=== PATIENT | female | born 1975 | race Caucasian/White ===

== ENCOUNTER 2020-10-26 14:43 | Observation (INO) ==
[2020-10-26] MEDS ORDERED: SODIUM CHLORIDE 0.9% 1,000 ML IV STA (15:04)
[2020-10-26 15:12] LABS: Basophils # 0.1 10*3/uL (0.0-0.2); Basophils % 1.1 % (0.0-0.8); Eosinophils # 0.1 10*3/uL (0.0-0.87); Eosinophils % 2.1 % (0.00-10.9); Hematocrit 33.1 VOL% (35.7-47.0); Hemoglobin 11.1 GM/DL (12.0-16.0); Immature Granulocytes % 0.2 %; Immature Granulocytes Absolute 0.01 #; Lymphocytes # 1.5 10*3/uL (1.4-4.0); Lymphocytes % 27.7 % (21.3-54.2); Mean Corpuscular HGB Conc 33.5 GM/DL (32-36); Mean Corpuscular Volume 89.7 FL (87-102); Mean Platelet Volume 8.9 FL (9.6-12.0); Monocytes % 10.7 % (1.7-12.7); Neutrophils % 58.2 % (38.7-73.9); Platelet Count 270 T/CUMM (130-400); Red Blood Count 3.69 MC/CUMM (3.8-5.5); Red Cell Distribution Width 12.6 % (9.3-17.3); White Blood Count 5.3 T/CUMM (4-12)
[2020-10-26 15:47] LABS: Alanine Aminotransferase 21 U/L (13-56); Albumin 3.6 G/DL (3.4-5.0); Alkaline Phosphatase 80 U/L (45-117); Aspartate Amino Transferase 24 U/L (0-37); Blood Urea Nitrogen 15 MG/DL (7-18); Calcium 8.5 MG/DL (8.5-10.1); Carbon Dioxide 25 MMOL/L (21-32); Estimated Glom Filtration Rate 127 ML/MIN; Glucose 103 MG/DL (74-106); Potassium 2.6 MMOL/L (3.5-5.1); Sodium 136 MMOL/L (136-145); Total Protein 6.1 G/DL (6.4-8.2)
[2020-10-26] MEDS ORDERED: LORazepam 2 MG/1 ML VIAL ONE (15:59)
[2020-10-26] MEDS ORDERED: LORazepam 2 MG/1 ML VIAL IM STA (16:22)
[2020-10-26] MEDS ORDERED: LORazepam 2 MG/1 ML VIAL IV STA (16:24)
[2020-10-26 16:31] LABS: Barbiturates Screen,Urine Negative (Negative); Benzodiazepines Screen,Urine Negative (Negative); Cannabinoid Screen,Urine Negative (Negative); Opiate Screen,Urine Negative (Negative); Phencyclidine Screen,Urine Negative (Negative)
[2020-10-26] MEDS ORDERED: POTASSIUM CHLORIDE RIDER 20 MEQ in PREMIX 1 EACH IV STA (18:33)
[2020-10-26] MEDS ORDERED: POTASSIUM CHLORIDE RIDER 100 ML IV ONE ×2 (19:02→19:03)
[2020-10-26] MEDS ORDERED: DEXTROSE 50% 25 GM/50 ML VIAL IV PRN (21:48)
[2020-10-26] MEDS ORDERED: GLUCAGON 1 MG VIAL IM PRN (21:48)
[2020-10-26] MEDS ORDERED: ONDANSETRON 4 MG/2 ML VIAL IV PRN (21:54)
[2020-10-26] MEDS ORDERED: NICOTINE 21 MG/24 HR PATCH TRANSDERM PRN (21:54)
[2020-10-26] MEDS: SODIUM CHLORIDE 0.9% 1,000 ML IV SCH (23:48)
[2020-10-27] MEDS: LORazepam 2 MG/1 ML VIAL IV PRN ×3 (01:24→20:18)
[2020-10-27 04:51] LABS: Osmolality,Calculated 278.3 MOS/KG (273-304)
[2020-10-27] MEDS ORDERED: POTASSIUM CHLORIDE 20 MEQ TABLET PO ONE (04:59)
[2020-10-27] MEDS: SODIUM CHLORIDE 0.9% 1,000 ML IV SCH ×4 (06:00→22:00)
[2020-10-27] MEDS: POTASSIUM CHLORIDE 20 MEQ TABLET PO PRN ×3 (09:27→13:47)
[2020-10-27] MEDS ORDERED: ALUMINUM/MAGNES/SIMETH MAX STR 30 ML UDCUP PO PRN (22:27)
[2020-10-28] MEDS: SODIUM CHLORIDE 0.9% 1,000 ML IV SCH ×2 (04:33→06:00)
[2020-10-28 05:07] LABS: Basophils # 0.1 10*3/uL (0.0-0.2); Basophils % 1.8 % (0.0-0.8); Eosinophils # 0.1 10*3/uL (0.0-0.87); Eosinophils % 3.6 % (0.00-10.9); Hematocrit 33.9 VOL% (35.7-47.0); Hemoglobin 11.1 GM/DL (12.0-16.0); Immature Granulocytes % 0.3 %; Immature Granulocytes Absolute 0.01 #; Lymphocytes % 50.9 % (21.3-54.2); Mean Corpuscular HGB Conc 32.7 GM/DL (32-36); Mean Corpuscular Volume 92.1 FL (87-102); Mean Platelet Volume 9.6 FL (9.6-12.0); Monocytes % 5.9 % (1.7-12.7); Neutrophils % 37.5 % (38.7-73.9); Platelet Count 260 T/CUMM (130-400); Red Blood Count 3.68 MC/CUMM (3.8-5.5); Red Cell Distribution Width 12.8 % (9.3-17.3); White Blood Count 3.9 T/CUMM (4-12)
[2020-10-28 05:39] LABS: Osmolality,Calculated 279.3 MOS/KG (273-304); Potassium 3.7 MMOL/L (3.5-5.1)
[2020-10-28 05:40] LABS: Eosinophils 5 % (0-10); Lymphocytes 56 % (20-55); Platelet Estimate Adequate; Segmented Neutrophils 37 % (50-85); Total Cells Counted 100
[2020-10-28 05:41] LABS: Atypical Lymphocytes Few; Hypochromasia 1+; Microcytosis 1+
[2020-10-28] MEDS: LORazepam 2 MG/1 ML VIAL IV PRN (08:39)
[2020-10-28 11:17] VITALS: BP 118/72
== END 2020-10-28 13:44 | disposition home or self-care (01) ==
LOC: EDBD → EDUNIT# → N.EDINP 14:43 → N.ED 14:43 → N.5E 10-27 08:05
PROVIDERS: ADMIT Internal Medicine; ATTEND Internal Medicine